=== PATIENT | male | born 1960 | race Caucasian/White ===

== ENCOUNTER 2017-09-20 16:56 | Emergency (ER) | payer SELFPAY ==
[2017-09-20] MEDS ORDERED: Albuterol/Ipratropium 3.0-0.5 MG/3 ML Neb Soln NEB ONE (18:00)
--- NOTE | 2017-09-20 18:02 | EDM.PDOC ---
ED HPI GENERAL MEDICAL PROBLEM - General Chief Complaint: Cardiovascular Problem Stated Complaint: SENT BY [facility] FOR ISSUE WITH [facility] Time Seen by Provider: 09/20/17 17:30 Source of Information: Reports: Patient, Other () History Limitations: Reports: No Limitations - History of Present Illness INITIAL COMMENTS - FREE TEXT/NARRATIVE: Taiwo is a 57yo male patient presents ambulatory with his wilber after driving from [facility]. States he was seen and evaluated and instructed to come to [facility] ED. He tells me he refused ambulance transfer as recommended by his provider there. He states he has been short of breath with exertion, worse for 2+ months. He denies CP or palpitations, no dizziness, no nausea or diaphoresis associated with exertion. He denies coughing despite being a smoker. He is a 1.5-2 PPD smoker for 40+ years. He knows he should quit but does not want to at this time. He states he is otherwise healthy; has not had any heart or lung problems in the past. He has family hx of CAD with his father having CABG and brother having PCI around age 60. He is unsure of his cholesterol. He does not exercise. He has gained 25lbs over the winter months as he has not been working and he and his were in [place] for the winter. His notes his breathing at night has changed over the past 3-4 months; he will stop breathing and have long pauses, then sometimes "panting" in the night, she will elbow him "a few times" per night to start breathing again. He has never heard of nor has he ever been screened for sleep apnea. Records are rec'd from [place] showing EKG which is difficult to read due to copy but with what appears to be SR with rate of 74bpm-reviewed with Dr. Zurita. CXR obtained is with report of no acute cardiopulmonary process is apparent. CBC is with mild anemia with hgb of 13.7 (14.0 is that lab normal value), WBC is normal at 9.3, PLT normal at 235, MCH, MCHC and MCV all elevated. Onset: Gradual (1-2 months) Duration: Chronic, Intermittent Location: Reports: Chest Improves with: Reports: Rest Worsens with: Reports: Movement (exertion) Context: Reports: Activity Associated Symptoms: Denies: Confusion, Chest Pain, Cough, Diaphoresis, Fever/ Chills, Headaches, Loss of Appetite, Malaise, Nausea/Vomiting, Shortness of Breath, Syncope, Weakness - Related Data Allergies Allergy/AdvReac Type Severity Reaction Status Date / Time No Known Allergies Allergy Verified 09/20/17 17:10 Home Meds: Home Meds . [No Known Home Meds] 09/20/17 [History] Past Medical History Gastrointestinal History: Reports: Other (See Below) Other Gastrointestinal History: groin hernia and repair - Past Surgical History GI Surgical History: Reports: Cholecystectomy Social & Family History - Tobacco Use Smoking Status *Q: Current Every Day Smoker Years of Tobacco use: 35 Packs/Tins Daily: 1 Used Tobacco, but Quit: No - Caffeine Use Caffeine Use: Reports: Coffee, Soda - Recreational Drug Use Recreational Drug Use: No ED ROS GENERAL - Review of Systems Review Of Systems: See Below Constitutional: Reports: Other (weight gain of 25+ lbs over the past 6+ months) . Denies: Fever, Chills, Malaise, Weakness, Fatigue, Decreased Appetite, Weight Loss HEENT: Reports: No Symptoms Respiratory: Reports: Shortness of Breath (worse with exertion- sometimes worse than others). Denies: Wheezing, Pleuritic Chest Pain, Cough, Sputum, Hemoptysis Cardiovascular: Reports: Dyspnea on Exertion. Denies: Chest Pain, Edema, Lightheadedness, Orthopnea, Palpitations, PND, Syncope GI/Abdominal: Reports: No Symptoms : Reports: No Symptoms Musculoskeletal: Reports: No Symptoms Neurological: Reports: No Symptoms Psychiatric: Reports: No Symptoms ED EXAM, GENERAL - Physical Exam Exam: See Below Exam Limited By: No Limitations General Appearance: Alert, WD/WN, No Apparent Distress, Other (mildly anxious and continues to ask when he can go home) Eye Exam: Bilateral Eye: EOMI, PERRL Ears: Normal External Exam, Hearing Grossly Normal Nose: Normal Inspection Throat/Mouth: Normal Inspection, Normal Lips, Normal Voice, No Airway Compromise Head: Atraumatic, Normocephalic Neck: Normal Inspection, Supple. No: Carotid Bruit Respiratory/Chest: No Respiratory Distress, Normal Breath Sounds, No Accessory Muscle Use, Decreased Breath Sounds (mid to lower lobes bilat) Cardiovascular: Normal Peripheral Pulses, Regular Rate, Rhythm, No Edema, No Murmur Peripheral Pulses: 2+: Dorsalis Pedis (L), Dorsalis Pedis (R) GI/Abdominal: Normal Bowel Sounds, Soft, Non-Tender, Other (Male) Exam: Deferred Rectal (Males) Exam: Deferred Back Exam: Normal Inspection Extremities: Normal Inspection, No Pedal Edema, Normal Capillary Refill Neurological: Alert, Oriented, Normal Cognition, Normal Gait, Normal Reflexes Skin Exam: Warm, Dry, Intact Course - Vital Signs Last Recorded V/S: Last Vital Signs Temp 97.8 F 09/20/17 17:07 Pulse 74 09/20/17 17:07 Resp 18 09/20/17 17:07 BP 128/86 09/20/17 17:07 Pulse Ox 98 09/20/17 18:00 - Orders/Labs/Meds Orders: Active Orders 24 hr Category Date Time Status RT Aerosol Therapy [RC] ASDIRECTED Care 09/20/17 18:00 Active Labs: Laboratory Tests 09/20/17 09/20/17 Range/Units 18:14 18:14 D-Dimer, Quantitative 0.36 (0.19-0.50) mg/L Sodium 141 (136-145) mEq/L Potassium 3.5 (3.5-5.1) mEq/L Chloride 107 (98-107) mEq/L Carbon Dioxide 24 (21-32) mEq/L Anion Gap 13.5 (5-15) BUN 16 (7-18) mg/dL Creatinine 0.8 (0.7-1.3) mg/dL Est Cr Clr Drug Dosing 102.66 mL/min Estimated GFR (MDRD) > 60 (>60) mL/min BUN/Creatinine Ratio 20.0 H (14-18) Glucose 93 (74-106) mg/dL Calcium 8.7 (8.5-10.1) mg/dL Total Bilirubin 0.6 (0.2-1.0) mg/dL AST 20 (15-37) U/L ALT 35 (16-63) U/L Alkaline Phosphatase 74 (46-116) U/L Troponin I < 0.017 (0.00-0.056) ng/mL C-Reactive Protein 7.6 H* (<1.0) mg/dL Total Protein 6.7 (6.4-8.2) g/dl Albumin 3.2 L (3.4-5.0) g/dl Globulin 3.5 gm/dL Albumin/Globulin Ratio 0.9 L (1-2) Meds: Medications Discontinued Medications Generic Name Dose Route Start Last Admin Trade Name Lula PRN Reason Stop Dose Admin Albuterol/Ipratropium 3 ml 09/20/17 18:00 09/20/17 18:06 Duoneb 3.0-0.5 Mg/3 Ml NEB 09/20/17 18:01 3 ml ONETIME ONE Administration - Re-Assessments/Exams Free Text/Narrative Re-Assessment/Exam: 09/20/17 23:05 Review normal labs, CMP, d-dimer, troponin with patient and . Offer CT scan of chest to evaluate "tortuous aorta" that they were told about in [place], however also reviewing that this can be a normal variant. Patient is adamant that he does not want further imaging done to evaluate this. We discussed multiple other testing that I would recommend that can be done as an outpatient to further evaluate his SOB/HANSON that has been present for 3+ months, not accompanied by CP, palpitations, diaphoresis, dizziness/ lightheadedness or other cardiac symptomatology. -Recommend echocardiogram, stress test with nuclear imaging, PFT's, sleep study or overnight sleep oximetry to eval for SIRI, fasting lipid panel, smoking cessation. He and his voice understanding and written instructions will be given to them at discharge regarding all of these recommendations. He is not interested in smoking cessation at this time, he knows he should quit but does not want to at this time. Patient is anxious to be discharged home and "get out of here". Departure - Departure Time of Disposition: 19:25 Disposition: Home, Self-Care 01 Condition: Good Clinical Impression: Shortness of breath on exertion, Tobacco use disorder Instructions: Shortness of Breath, Adult, [id number], Tobacco Use Disorder Referrals: PCP,None [Primary Care Provider] - Forms: ED Department Discharge Additional Instructions: Labs today are within normal limits; no evidence of heart attack or pulmonary embolism (blood clot in your lung) or blood clots in your legs. Your liver, kidney and electrolyte tests are normal. Your chest xray was normal earlier today. Offered CT of chest today but you have declined and with normal labs today, this can be done as an outpatient. Recommendations: Stress test and echocardiogram to be done as an outpatient with your Primary Care Provider (PCP) Sleep apnea screening test- also to be done with/through PCP Pulmonary Function testing- you are a 40 year smoker and likely have chronic lung disease--- do this through PCP Fasting cholesterol levels Recommend to stop smoking Diet modifications, decrease caloric intake, avoid soda and sugar---weight loss Light walking as you can tolerate to help with exercise--increasing this as you have clearance from your PCP. Return to ER if needed for worsening shortness of breath, chest pains, palpitations, other questions or concerns; otherwise follow up [facility] PCP early next week for above noted evaluation. - My Orders Last 24 Hours: My Active Orders 09/20/17 18:00 RT Aerosol Therapy [RC] ASDIRECTED - Assessment/Plan Last 24 Hours: My Active Orders 09/20/17 18:00 RT Aerosol Therapy [RC] ASDIRECTED
== END 2017-09-20 19:35 | disposition home or self-care (01) ==
LOC: JD.ED 16:56
DX: R06.02 Shortness of breath (principal); F17.210 Nicotine dependence, cigarettes, uncomplicated
CPT/HCPCS: 36415; 80053; 84484; 85379; 86140; 94640; 99284; 99285-25